=== PATIENT | male | born 2000 | race African-American/Black ===

== ENCOUNTER 2019-03-09 01:33 | Emergency (ER) | payer SELFPAY ==
[~2019-03-09] VITALS: Ht 172.7 cm; Wt 63.6 kg
[2019-03-09 01:35] VITALS: Ht 172.7 cm; Wt 63.6 kg
[2019-03-09 01:49] VITALS: BP 126/82
== END 2019-03-09 01:49 | disposition home or self-care (01) ==
LOC: D.ER 01:33
DX: M79.672 Pain in left foot (principal); M79.671 Pain in right foot; L84 Corns and callosities; Z00.00 Encounter for general adult medical examination without abnormal findings

== ENCOUNTER 2019-10-16 03:28 | Emergency (ER) | payer SELFPAY ==
[~2019-10-16] VITALS: Ht 172.7 cm; Wt 75.0 kg
[2019-10-16 03:31] VITALS: Ht 172.7 cm; Wt 75.0 kg
[2019-10-16 05:28] LABS: BASOPHILS 0.1 % (0-2); EOSINOPHILS 0 % (0-7); HEMATOCRIT 40.8 % (42.0-54.0); HEMOGLOBIN 14.2 g/dL (13.5-17.5); IMMATURE GRANULOCYTES 0.1 % (0-5); LYMPHOCYTES 21.3 % (15-50); MCH 32.1 pg (26.0-34.0); MCHC 34.8 g/dL (31.0-37.0); MCV 92.3 fL (80.0-100.0); MEAN PLATELET VOLUME 9.1 fL (7.4-10.4); MONOCYTES 6.7 % (2-11); NEUTROPHILS 71.8 % (40-80); PLATELET COUNT 264 10x3/uL (130-400); RBC 4.42 10x6/uL (4.20-6.10); RDW 13.4 % (11.5-14.5); WBC 9.4 10x3/uL (4.8-10.8)
[2019-10-16 05:42] LABS: CALC OSMOLALITY 273 mosm/kg (275-300); CARBON DIOXIDE 27.2 mmol/L (21.0-32.0); CHLORIDE - SERUM 100 mmol/L (98-107); CREATININE - SERUM 0.7 mg/dL (0.6-1.3); GLUCOSE 94 mg/dL (74-106); POTASSIUM - SERUM 3.5 mmol/L (3.5-5.1); SODIUM 138 mmol/L (136-145); UREA NITROGEN 6 mg/dL (7-18); eGFR NON AFRICAN AMERICAN > 90 mL/min (90-120)
[2019-10-16 05:47] LABS: ALKALINE PHOSPHATASE 76 U/L (30-120); ALT (SGPT) 22 U/L (10-68); BILIRUBIN - TOTAL 0.51 mg/dL (0.2-1.3); PROTEIN - SERUM 8.4 g/dL (6.4-8.2)
[2019-10-16 06:26] VITALS: BP 116/66
== END 2019-10-16 06:26 | disposition home or self-care (01) ==
LOC: D.ER 03:28
PROVIDERS: Emergency Medicine
DX: G43.009 Migraine without aura, not intractable, without status migrainosus (principal); F17.210 Nicotine dependence, cigarettes, uncomplicated